=== PATIENT | male | born 1950 | race Caucasian/White ===

== ENCOUNTER → 2017-08-16 | Outpatient (CLI) | payer BC ==
[2017-08-16 13:24] LABS: BASO % 0.2 %; BASO ABS # 0.01 K/uL (0-0.2); COMPLETE YES; EOS % 1.3 %; HEMATOCRIT 45.7 % (42-52); IG% 0.3 %; LYMPH % 25.5 %; LYMPH ABS # 1.56 K/uL (1.2-3.4); MEAN CELL VOLUME 85.3 fL (80-100); MEAN CORPUSCULAR HEMOGLOBIN 28.2 pg (25-34); MEAN PLATELET VOLUME 11.6 fL (7.4-10.4); MONO % 10.8 %; NEUT % 61.9 %; PLATELET COUNT 171 K/uL (130-400); RED BLOOD COUNT 5.36 M/uL (4.7-6.1); WHITE BLOOD COUNT 6.11 K/uL (4.8-10.8)
[2017-08-16 13:47] LABS: ALT/SGPT 41 U/L (12-78); BLOOD UREA NITROGEN 15 mg/dl (7-18); BUN/CREATININE RATIO 17.4 (10-20); CALCIUM 8.7 mg/dl (8.5-10.1); CARBON DIOXIDE 29 mmol/L (21-32); CHLORIDE 105 mmol/L (98-107); CHOLESTEROL 201 mg/dl (0-200); CREATININE 0.87 mg/dl (0.60-1.40); GLUCOSE 96 mg/dl (70-99); POTASSIUM 3.9 mmol/L (3.5-5.1); SODIUM 140 mmol/L (136-145); TRIGLYCERIDES 138 mg/dl (0-150); VERY LOW DENSITY LIPOPROT CALC 28 mg/dl
[2017-08-16 13:57] LABS: ALB/GLOB RATIO 1.1 (0.9-2); ALKALINE PHOSPHATASE 47 U/L (45-117); AST/SGOT 32 U/L (15-37); CHOLESTEROL/HDL RATIO 4.7; HDL CHOLESTEROL 43 mg/dl; LDL CHOLESTEROL CALCULATED 130 mg/dl
[2017-08-16 13:59] LABS: ESTIMATED AVERAGE GLUCOSE 126 mg/dl; HA1C FLAG Normal (Normal)
== END | disposition home or self-care (01) ==
LOC: C.LABMFLN 08:35
PROVIDERS: ATTEND Family Medicine
DX: N40.1 Benign prostatic hyperplasia with lower urinary tract symptoms (principal); R20.2 Paresthesia of skin; Z13.220 Encounter for screening for lipoid disorders

== ENCOUNTER → 2017-09-23 | Outpatient (CLI) | payer BC ==
[2017-09-23 19:20] LABS: LYME DISEASE AB IGG POS (NEG); LYME DISEASE AB IGM POS (NEG)
== END | disposition home or self-care (01) ==
LOC: C.LABMFLN 12:13
PROVIDERS: ATTEND Family Medicine
DX: G62.9 Polyneuropathy, unspecified (principal)

== ENCOUNTER → 2017-09-30 | Outpatient (CLI) | payer BC ==
[2017-09-30 18:17] LABS: BLOOD UREA NITROGEN 15 mg/dl (7-18); BUN/CREATININE RATIO 16.9 (10-20); CREATININE 0.86 mg/dl (0.60-1.40)
== END | disposition home or self-care (01) ==
LOC: C.LABMFLN 14:11
PROVIDERS: ATTEND Family Medicine
DX: A69.20 Lyme disease, unspecified (principal)

== ENCOUNTER → 2017-10-05 | Outpatient (CLI) | payer BC ==
[~2017-10-05] MED LIST: GADAVIST IV PRN
--- NOTE | 2017-10-05 16:45 | DIAGNOSTIC IMAGING REPORT ---
BRAIN COMBO HISTORY: 67 years-old Male NEUROLOGICAL LYMES DISEASE acute lines disease with tingling and numbness of the toes. COMPARISON: None available TECHNIQUE: Multiplanar multisequence MRI of the brain was obtained both with and without the use of 6.5 mL Gadavist FINDINGS: No restricted diffusion to suggest acute infarction. Midline structures including the corpus callosum, brainstem, optic chiasm, pituitary and pineal glands are unremarkable the sagittal T1 series. No cerebellar tonsillar herniation. Degenerative changes are seen within the imaged cervical spine. There is no acute intracranial hemorrhage, midline shift, abnormal extra-axial collections, hydrocephalus or intracranial mass. Minimal brain atrophy. Scattered foci of T2/FLAIR prolongation within the periventricular and subcortical white matter of the cerebral hemispheres bilaterally are noted. There is no abnormal intra-axial or extra-axial enhancement. The postcontrast images however are mildly motion degraded. Major flow voids at the level of the skull base appear patent. Orbits are symmetric. Mastoid air cells are clear. Minimal mucosal thickening of the ethmoid air cells. Scalp, calvarium and soft tissues are unremarkable. IMPRESSION: 1. No acute intracranial abnormality. No acute infarction or abnormal enhancement. 2. Scattered foci of T2/FLAIR prolongation within the periventricular and subcortical white matter of the cerebral hemispheres bilaterally suggest mild chronic microvascular ischemic changes. The above report was generated using voice recognition software. It may contain grammatical, syntax or spelling errors. Electronically signed by: Eric Bahena M.D. 10/05/2017 4:44 PM Dictated Date/Time: 10/05/2017 4:38 PM
== END | disposition home or self-care (01) ==
LOC: C.MRI 14:55
PROVIDERS: ATTEND Family Medicine
DX: G93.89 Other specified disorders of brain (principal); A69.20 Lyme disease, unspecified

== ENCOUNTER → 2017-10-20 | Outpatient (CLI) | payer BC ==
[2017-10-20 13:00] LABS: CHOLESTEROL/HDL RATIO 3.2
== END | disposition home or self-care (01) ==
LOC: C.LABMFLN 09:06
PROVIDERS: ATTEND Family Medicine
DX: E78.5 Hyperlipidemia, unspecified (principal)